=== PATIENT | female | born 1995 | race Caucasian/White ===

== ENCOUNTER 2017-01-30 17:52 | Emergency (ER) | payer OTHER ==
[~2017-01-30] VITALS: Ht 157.5 cm; Wt 63.5 kg
[~2017-01-30 17:52] MED LIST: AMOXIL500 MG PO; BUPROPION HCL300 MG PO; CITALOPRAM10 MG PO; CLONIDINE HCL0.1 MG PO; IBUPROFEN600 M1 PO; PERCOCET 325 MG1 TA2 PO; SEROQUEL25 M1 PO; VALTREX1000 MG PO
[2017-01-30] MEDS ORDERED: TRILEPTAL600 M1 PO (18:08)
[2017-01-30] MEDS ORDERED: NEURONTIN600 M1 PO (18:08)
[2017-01-30] MEDS ORDERED: CELEXA40 M1 PO (18:08)
--- NOTE | 2017-01-30 18:08 | ED GENERAL ADULT ---
History of Present Illness General Chief Complaint: Psychiatric Related Complaint Stated Complaint: BIBA, ETOH, PSYCH EVAL Source: patient, old records, EMS Exam Limitations: no limitations Vital Signs & Intake/Output Vital Signs & Intake/Output Vital Signs Date Time Temp Pulse Resp B/P B/P Pulse O2 O2 Flow FiO2 Mean Ox Delivery Rate 01/30 1814 98.0 104 22 120/70 100 Room Air Allergies Coded Allergies: NO KNOWN ALLERGIES (09/10/15) Reconcile Medications Amoxicillin (Amoxil) 500 MG CAP 1 TAB PO TID EAR INFECTION BUPROPION HCL (Bupropion XL) 300 MG TAB.ER.24H 1 TAB PO EOD MENTAL HEALTH ( Reported) Citalopram Hydrobromide (Citalopram HBr) 10 MG TABLET 1 TAB PO EOD MENTAL HEALTH (Reported) Citalopram Hydrobromide (Celexa) 40 MG TABLET 1 TAB PO DAILY BIPOLAR Clonidine HCl 0.1 MG TABLET 1 TAB PO TID ANXIETY Gabapentin (Neurontin) 600 MG TABLET 2 TAB PO TID BIPOLAR Ibuprofen 600 MG TABLET 1 TAB PO TID PRN PAIN with food Oxcarbazepine (Trileptal) 600 MG TABLET 1 TAB PO BID BIPOLAR OXYCODONE HCL/ACETAMINOPHEN (Percocet 5-325 MG Tablet) 325 MG/5 MG TAB 1-2 TAB PO Q4-6 PRN PRN PAIN Quetiapine Fumarate (Seroquel) 25 MG TABLET 1 TAB PO QPM ANXIETY Valacyclovir HCl (Valtrex) 1,000 MG TABLET 1 TAB PO DAILY HERPETIC LESIONS Triage Nurses Notes Reviewed? yes HPI: Patient was given by ambulance for evaluation. Patient states that she just got "of rehabilitation. Patient states that there was a protective order against her but she was told that that ran out yesterday. Patient went to the location and fell asleep. Patient woke up to the police pain on her door. Patient states that the police told her that she come in to the emergency room for evaluation or there are R rest her. Patient is awake alert and awake 3. Patient denies any suicidal or homicidal ideations. Patient denies any hallucinations. Patient is acting appropriately. Patient only request is a refill for her medications. Past History Travel History Traveled to [place] past 21 day No Medical History Any Pertinent Medical History? 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 No Review of Systems Review of Systems Constitutional: Reports: no symptoms. EENTM: Reports: no symptoms. Respiratory: Reports: no symptoms. Cardiovascular: Reports: no symptoms. GI: Reports: no symptoms. Genitourinary: Reports: no symptoms. Musculoskeletal: Reports: no symptoms. Skin: Reports: no symptoms. Neurological/Psychological: Reports: no symptoms. Hematologic/Endocrine: Reports: no symptoms. Immunologic/Allergic: Reports: no symptoms. All Other Systems: Reviewed and Negative Physical Exam Physical Exam General Appearance: well developed/nourished, alert, awake Head: atraumatic, normal appearance Eyes: Bilateral: PERRL, EOMI. Ears, Nose, Throat: normal pharynx, normal ENT inspection, hearing grossly normal Neck: normal inspection, supple, full range of motion Respiratory: normal breath sounds, chest non-tender, no respiratory distress, lungs clear Cardiovascular: regular rate/rhythm, normal peripheral pulses Neurologic/Psych: no motor/sensory deficits, awake, alert, oriented x 3, normal gait, normal mood/affect Skin: intact, normal color, warm/dry Core Measures ACS in differential dx? No CVA/TIA Diagnosis: No Sepsis Present: No Sepsis Focused Exam Completed? No Progress Differential Diagnoses I considered the following diagnoses in my evaluation of the patient: [ Evaluation, medication refill] Plan of Care: Refill medications Initial ED EKG: none Comments: Patient is awake alert and oriented 3. Patient speaks normally and there is no slurring or stuttering. Patient walks with a normal ataxic gait. There are no apparent hallucinations. Patient is stable for discharge. Departure Departure Disposition: HOME OR SELF CARE Condition: Stable Clinical Impression Primary Impression: Medication refill Referrals: Patient Has No Primary Care Dr (PCP/Family) Additional Instructions: PLEASE RETURN OR CALL 211 FOR ANY CONCERNS OF HARMING YOURSELF, ANYONE ELSE OR FOR ANY CONCERNS Departure Forms: Customer Survey General Discharge Information Prescriptions: Current Visit Scripts Oxcarbazepine (Trileptal) 1 TAB PO BID #60 TAB Gabapentin (Neurontin) 2 TAB PO TID #180 TAB Citalopram Hydrobromide (Celexa) 1 TAB PO DAILY #30 TAB Critical Care Note Critical Care Note Critical Care Time: non-applicable
[2017-01-30 18:14] VITALS: BP 120/70
== END 2017-01-31 18:19 ==
LOC: ERH 17:52
DX: Z76.0 Encounter for issue of repeat prescription (principal)
CPT/HCPCS: 99281